=== PATIENT | female | born 1955 | race Caucasian/White ===

== ENCOUNTER 2018-07-05 19:26 | Emergency (ER) | payer BC ==
[~2018-07-05] VITALS: Ht 165.1 cm; Wt 61.2 kg
[2018-07-05 22:15] VITALS: BP 128/70
[2018-07-05] MEDS ORDERED: IBUPROFEN 600MG TABLET PO ONE (22:45)
== END 2018-07-05 23:00 | disposition home or self-care (01) ==
LOC: ER 19:26
DX: G47.00 Insomnia, unspecified (principal); G89.29 Other chronic pain; G35 Multiple sclerosis; E03.9 Hypothyroidism, unspecified
CPT/HCPCS: 99283